=== PATIENT | female | born 1995 | race Two or more races ===

== ENCOUNTER 2025-02-28 16:04 | Emergency (ER) | payer OTHER ==
[~2025-02-28] VITALS: Ht 172.7 cm; Wt 54.4 kg
[2025-02-28 17:52] LABS: BASO % 0.6 % (0.1-1.2); EOS # 0.29 (0.04-0.54); EOS % 3.5 % (0.7-7.0); LYMPH # 3.20 (1.18-3.74); LYMPH % 39.1 % (19.3-53.1); MEAN PLATELET VOLUME 10.90 fl (9.4-12.4); MONO # 0.55 (0.24-0.82); MONO % 6.7 % (4.7-12.5); NEUT # 4.08 (1.56-6.13); NEUT % 50.0 % (34.0-71.1); RED CELL DISTRIBUTION WIDTH 12.1 % (11.6-14.4)
== END 2025-02-28 19:33 | disposition home or self-care (01) ==
LOC: ER 16:24
PROVIDERS: Emergency Medicine
DX: D64.89 Other specified anemias (principal); Z91.013 Allergy to seafood